=== PATIENT | female | born 1980 | race Caucasian/White ===

== ENCOUNTER 2020-03-28 03:11 | Inpatient (IN) ==
[2020-03-28] MEDS ORDERED: Lactated Ringers 1000 ml BAG 1,000 ML IV ONE ×2 (03:50→06:02)
[2020-03-28] MEDS ORDERED: Buffered Lidocaine 1% SYRIN 1 ml INTRADERM ONE ×2 (03:50→06:06)
[2020-03-28] MEDS ORDERED: Lactated Ringers 1000 ml BAG 1,000 ML IV SCH ×3 (04:00→07:00)
[2020-03-28 04:17] LABS: ABS Lymphocytes 1.5 10^3/ul (1.0-4.8); ABS Monocytes 0.6 10^3/ul (0-0.8); ABS Neutrophils 9.9 10^3/ul (1.5-7.7); Eosinophil % 0.4 %; Hematocrit 33 % (35-47); Hemoglobin 11.1 g/dL (12.0-16.0); Lymphocyte % 12.2 %; Mean Corpuscular HGB Conc 34 g/dL (31-36); Mean Corpuscular Hemoglobin 29 pg (27-31); Mean Corpuscular Volume 87 fL (80-97); Mean Platelet Volume 8.8 fL (7.4-10.4); Platelet Count 190 10^3/uL (150-450); Red Blood Count 3.77 10^6 /uL (3.70-4.87); Red Cell Distribution Width 14 % (10-15)
[2020-03-28] MEDS ORDERED: OBEPIDURAL 250 ML EPIDURAL ONE (04:27)
[2020-03-28] MEDS ORDERED: Bupivacaine 0.25% SDV PF 10 ML VIAL INJ ONE (04:45)
[2020-03-28] MEDS ORDERED: Phenylephrine 40 mcg/mL 10mL (400mcg) SYRINGE ONE (05:38)
[2020-03-28] MEDS ORDERED: Phenylephrine 40 mcg/mL 10mL (400mcg) SYRINGE IV PUSH PRN (06:02)
[2020-03-28] MEDS ORDERED: Sodium Citrate/Citric Acid LIQ 15 ML UDC PO PRN (06:02)
[2020-03-28] MEDS ORDERED: EPHEDrine (Pressors) 50 MG/ML VIAL IV PUSH PRN (06:02)
[2020-03-28] MEDS ORDERED: Oxytocin in LR 20 UNITS/1,000 ML BAG IVPB ONE (06:59)
[2020-03-28] MEDS ORDERED: OBEPIDURAL 250 ML EPIDURAL SCH (07:00)
[2020-03-28 07:59] LABS: Urine Benzodiazepine Screen None Detected (None Detect); Urine Cannabinoids Screen None Detected (None Detect); Urine Opiates Screen None Detected (None Detect)
[2020-03-28] MEDS ORDERED: Glycerin ADULT 2.4 gm SUPP PR PRN (12:16)
[2020-03-28] MEDS ORDERED: Witch Hazel PAD JAR TOPICAL PRN (12:16)
[2020-03-28] MEDS ORDERED: Dibucaine 1% OINT 28.35 GM TUBE PR PRN (12:16)
[2020-03-28] MEDS ORDERED: Oxytocin in LR 20 UNITS/1,000 ML BAG IVPB SCH (13:00)
[2020-03-29 05:21] LABS: ABS Eosinophils 0.1 10^3/ul (0-0.6); ABS Lymphocytes 1.8 10^3/ul (1.0-4.8); ABS Monocytes 0.7 10^3/ul (0-0.8); ABS Neutrophils 6.8 10^3/ul (1.5-7.7); Eosinophil % 0.6 %; Hematocrit 30 % (35-47); Hemoglobin 9.9 g/dL (12.0-16.0); Lymphocyte % 19.1 %; Mean Corpuscular HGB Conc 34 g/dL (31-36); Mean Corpuscular Hemoglobin 30 pg (27-31); Mean Corpuscular Volume 88 fL (80-97); Mean Platelet Volume 8.3 fL (7.4-10.4); Platelet Count 160 10^3/uL (150-450); Red Blood Count 3.35 10^6 /uL (3.70-4.87); Red Cell Distribution Width 13 % (10-15); White Blood Count 9.4 10^3/uL (3.5-10.8)
[2020-03-30 07:59] VITALS: BP 114/68
== END 2020-03-30 13:30 | disposition home or self-care (01) | DRG 807 ==
LOC: MCHOBOUT 03:11 → MCHOB 03:52
PROVIDERS: ADMIT Obstetrics & Gynecology; ATTEND Obstetrics & Gynecology